=== PATIENT | male | born 1975 | race Hispanic/Latino ===

== ENCOUNTER 2019-09-21 14:33 | Emergency (ER) | payer SELFPAY ==
[2019-09-21 15:51] LABS: Absolute Lymphocytes (CBC) 2.7 K/uL (0.7-4.9); Basophils % 1.3 % (0-1.3); Lymphocytes % 21.2 % (15.3-44.8); MPV 9.8 fL (7.6-11.3)
[2019-09-21 16:06] LABS: Potassium 3.4 mmol/L (3.5-5.1)
[2019-09-21] MEDS ORDERED: SMZ./TMP. 800/160 MG TABLET ONE (16:10)
[2019-09-21] MEDS ORDERED: CLINDAMYCIN 900MG/D5W 900 MG/50 ML IVPB IV ONE (16:10)
--- NOTE | 2019-09-21 16:34 | ER ---
Nurse's Notes [facility] – [place], [place] Name: Fredy Bernard Age: 44 yrs Sex: Male : 1975 Arrival Date: 09/21/2019 Time: 14:34 Bed 14 Private MD: Diagnosis: Cellulitis of left lower limb Presentation: 09/20 14:37 Chief complaint: Patient states: I think I got bit by a spider on my L leg 2 days. Now, ca1 it's red and hot to touch and hurts a lot. Coronavirus screen: Proceed with normal triage. Patient denies a cough. Patient denies shortness of breath or difficulty breathing. Patient denies measured and/or subjective temperature greater than 100.4F prior to today's visit. Patient denies travel on a cruise ship or to a country the [facility] currently lists as an affected area. Patient denies contact with known and/or suspected case of COVID-19. Ebola Screen: Patient negative for fever greater than or equal to 101.5 degrees Fahrenheit, and additional compatible Ebola Virus Disease symptoms Patient denies exposure to infectious person. Patient denies travel to an Ebola-affected area in the 21 days before illness onset. No symptoms or risks identified at this time. Initial Sepsis Screen: Does the patient meet any 2 criteria? No. Patient's initial sepsis screen is negative. Does the patient have a suspected source of infection? No. Patient's initial sepsis screen is negative. Risk Assessment: Do you want to hurt yourself or someone else? Patient reports no desire to harm self or others. Onset of symptoms was September 21, 2019. 14:37 Method Of Arrival: Ambulatory ca1 14:37 Acuity: MARÍA ELENA 4 ca1 Triage Assessment: 14:45 Bite description: bite sustained to left lower leg by Pt. reports that he is uncertain rb1 if he was bitten by something., animal information: vaccination(s) is not applicable. Historical: - Allergies: 14:41 No Known Allergies; ca1 - Home Meds: 14:41 albuterol sulfate inhalation Inhl [Active]; ca1 - PMHx: 14:41 Asthma; ca1 - PSHx: 14:41 None; ca1 - Immunization history:: Adult Immunizations up to date, Flu vaccine is up to date. - Social history:: Smoking status: Patient reports the use of cigarette tobacco products, smokes one-half pack cigarettes per day. Screenin:45 Abuse screen: Denies threats or abuse. Nutritional screening: No deficits noted. rb1 Tuberculosis screening: No symptoms or risk factors identified. Fall Risk None identified. Assessment: 14:45 General: Appears uncomfortable, Behavior is calm, cooperative, Denies fever, No fever rb1 today per pt. report. He did have a fever, chills, and bodyaches two days ago, but those symptoms went away. Denies SOB and cough. Pain: Complains of pain in left lower leg Pain currently is 10 out of 10 on a pain scale. Pain began 2-3 days ago. Neuro: Level of Consciousness is awake, alert, obeys commands, Oriented to person, place, time, situation. Cardiovascular: Capillary refill < 3 seconds. Respiratory: Airway is patent Respiratory effort is even, unlabored, Respiratory pattern is regular, symmetrical, Denies cough, shortness of breath. GI: No signs and/or symptoms were reported involving the gastrointestinal system. : No signs and/or symptoms were reported regarding the genitourinary system. Derm: Skin is intact, Skin is red. Musculoskeletal: Swelling present in left lower leg. 15:45 Reassessment: Patient appears in no apparent distress at this time. No changes from rb1 previously documented assessment. 16:13 Reassessment: US at the bedside. rb1 16:40 Reassessment: Patient appears in no apparent distress at this time. Patient and/or rb1 family updated on plan of care and expected duration. Pain level reassessed. Patient is alert, oriented x 3, equal unlabored respirations, skin warm/dry/pink. Vital Signs: 14:37 BP 124 / 89; Pulse 95; Resp 17 S; Temp 97.4(TE); Pulse Ox 97% on R/A; Weight 145.15 kg ca1 (R); Height 5 ft. 6 in. (167.64 cm) (R); Pain 10/10; 15:42 BP 123 / 88; Pulse 96; Resp 20; Pulse Ox 99% on R/A; rb1 16:40 BP 125 / 91; Pulse 91; Resp 18; Pulse Ox 100% on R/A; rb1 14:37 Body Mass Index 51.65 (145.15 kg, 167.64 cm) ca1 ED Course: 14:34 Patient arrived in ED. ag5 14:36 Anatoliy Yoon PA is PHCP. cp 14:36 Pradip Che MD is Attending Physician. cp 14:40 Triage completed. ca1 14:41 Arm band placed on right wrist. ca1 14:42 Zenaida Strickland, RN is Primary Nurse. rb1 14:45 Patient has correct armband on for positive identification. Bed in low position. Call rb1 light in reach. Side rails up X 1. Pulse ox on. NIBP on. 15:39 Initial lab(s) drawn, by me, sent to lab. First set of blood cultures drawn By me in lt1 RAC. 15:41 Inserted saline lock: 20 gauge in right antecubital area, using aseptic technique. lt1 15:48 Second set of blood cultures drawn By me in LAC. lt1 15:50 Bed in low position. Call light in reach. Door closed. Lights dimmed. Warm blanket lt1 given. 15:50 Blood Culture Adult (2) Sent. lt1 15:50 BMP Sent. lt1 15:50 CBC with Diff Sent. lt1 16:22 PHCP role handed off by Anatoliy Yoon PA kb 16:22 Sheri Gonzalez FNP-C is PHCP. kb 16:33 Anatoliy Yoon PA is PHCP. cp 16:36 Ultrasound completed. Patient tolerated well. sg3 16:36 US Extremity Venous Unilateral Ltd In Process Unspecified. EDMS 17:11 No provider procedures requiring assistance completed. IV discontinued, intact, rb1 bleeding controlled, No redness/swelling at site. Pressure dressing applied. Administered Medications: 16:10 Drug: Clindamycin 900 mg Route: IVPB; Infused Over: 30 mins; Site: right antecubital; rb1 16:30 Follow up: Response: No adverse reaction; IV Status: Completed infusion rb1 16:10 Drug: Bactrim (160 mg-800 mg (DS) 1 tablet Route: PO; rb1 16:40 Follow up: Response: No adverse reaction rb1 16:58 Drug: Potassium Effervescent Tablet 25 mEq Route: PO; rb1 17:00 Follow up: Response: Medication administered at discharge. rb1 Outcome: 16:34 Discharge ordered by . cp 17:11 Patient left the ED. rb1 17:11 Discharged to home ambulatory, pt. did not want a wheelchair rb1 17:11 Condition: stable 17:11 Discharge instructions given to patient, Instructed on discharge instructions, follow up and referral plans. medication usage, Demonstrated understanding of instructions, follow-up care, medications, Prescriptions given X 3. Signatures: Dispatcher [employer] Sheri Fraire, ILEANA-Gabriele [employer]UP[employer] DEVELOPER-Anatoliy Velez PA PA cp Barber, Rebecca, RN RN rb1 Sho Barger sg3 Roselyn Osei RN RN ca1 Luis Fernando Sharma ag5 Tayler, Halie 1
--- NOTE | 2019-09-21 16:34 | EDPHYS ---
Physician Documentation [facility] Name: Fredy Bernard Age: 44 yrs Sex: Male : 1975 Arrival Date: 09/21/2019 Time: 14:34 Bed 14 Private MD: ED Physician Pradip Che HPI: 09/20 15:30 This 44 yrs old Male presents to ER via Ambulatory with complaints of Insect Bite, Leg cp Pain. 15:30 The patient presents with pain, that is acute, swelling, tenderness, erythema. The cp complaints affect the left lower leg. 15:30 Context: resulted from possible spider bite, the patient can fully bear weight, the cp patient is able to ambulate. Onset: The symptoms/episode began/occurred 2 day(s) ago. Associated signs and symptoms: Pertinent positives: fever, swelling, warmth, Pertinent negatives numbness, shortness of breath, chest pain. Treatment prior to arrival includes: took 1000 mg of penicillin earlier today. 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 Historical: - Allergies: 14:41 No Known Allergies; ca1 - Home Meds: 14:41 albuterol sulfate inhalation Inhl [Active]; ca1 - PMHx: 14:41 Asthma; ca1 - PSHx: 14:41 None; ca1 - Immunization history:: Adult Immunizations up to date, Flu vaccine is up to date. - Social history:: Smoking status: Patient reports the use of cigarette tobacco products, smokes one-half pack cigarettes per day. ROS: 15:35 Constitutional: Negative for body aches, chills, fever, poor PO intake. cp 15:35 Eyes: Negative for injury, pain, redness, and discharge. cp 15:35 ENT: Negative for drainage from ear(s), ear pain, sore throat, difficulty swallowing, difficulty handling secretions. 15:35 Cardiovascular: Negative for chest pain, palpitations. 15:35 Respiratory: Negative for cough, shortness of breath, wheezing. 15:35 Abdomen/GI: Negative for abdominal pain, nausea, vomiting, and diarrhea. 15:35 MS/extremity: Positive for erythema, pain, swelling, tenderness, of the left lower leg, Negative for injury or acute deformity, decreased range of motion, paresthesias. 15:35 Neuro: Negative for altered mental status, headache, weakness. 15:35 All other systems are negative. Exam: 15:40 Constitutional: The patient appears in no acute distress, alert, awake, non-toxic, well cp developed, well nourished, obese. 15:40 Head/Face: Normocephalic, atraumatic. cp 15:40 Eyes: Periorbital structures: appear normal, Conjunctiva: normal, Lids and lashes: cp appear normal, bilaterally. 15:40 ENT: External ear(s): are unremarkable, Nose: is normal, Mouth: is normal, Posterior pharynx: is normal, airway is patent. 15:40 Chest/axilla: Inspection: normal. 15:40 Cardiovascular: Rate: normal, Rhythm: regular, JVD: is not appreciated. 15:40 Respiratory: the patient does not display signs of respiratory distress, Respirations: normal, no use of accessory muscles, labored breathing, is not present, Breath sounds: are clear throughout, no decreased breath sounds, no stridor, no wheezing. 15:40 Abdomen/GI: Exam negative for discomfort, distension, guarding, Inspection: abdomen appears normal. 15:40 Back: pain, is absent, ROM is normal. 15:40 Musculoskeletal/extremity: Extremities: grossly normal except: noted in the left lower leg: erythema, swelling, tenderness, There is no evidence of Perfusion: the extremity is normally perfused throughout, Sensation intact. 15:40 Skin: abscess, not appreciated, cellulitis, that is moderate, irregular, on the left lower leg, skin intact. 15:40 Neuro: Orientation: to person, place \T\ time. Mentation: is normal, Motor: moves all fours, strength is normal. Vital Signs: 14:37 BP 124 / 89; Pulse 95; Resp 17 S; Temp 97.4(TE); Pulse Ox 97% on R/A; Weight 145.15 kg ca1 (R); Height 5 ft. 6 in. (167.64 cm) (R); Pain 10/10; 15:42 BP 123 / 88; Pulse 96; Resp 20; Pulse Ox 99% on R/A; rb1 16:40 BP 125 / 91; Pulse 91; Resp 18; Pulse Ox 100% on R/A; rb1 14:37 Body Mass Index 51.65 (145.15 kg, 167.64 cm) ca1 MDM: 15:15 Patient medically screened. cp 16:33 Data reviewed: vital signs, nurses notes, lab test result(s), radiologic studies, cp ultrasound, and as a result, I will discharge patient. 16:33 ED course: VSS. US tech reports lower extremity US negative for DVT left leg. IV and cp oral antibiotics given and will discharge to home for continued monitoring. 09/20 15:20 Order name: CBC with Diff; Complete Time: 15:54 09/20 15:55 Interpretation: Normal except: WBC 12.8; NEUT A 9.0. 09/20 15:20 Order name: BMP; Complete Time: 16:08 09/20 16:09 Interpretation: Normal except: K 3.4; GFR 68. 09/20 15:20 Order name: Blood Culture Adult (2) 09/20 15:20 Order name: US Extremity Venous Unilateral Ltd 09/20 15:20 Order name: IV; Complete Time: 15:50 09/20 15:21 Order name: Misc. Order: outline area of erythema; Complete Time: 16:13 cp Administered Medications: 16:10 Drug: Clindamycin 900 mg Route: IVPB; Infused Over: 30 mins; Site: right antecubital; rb1 16:30 Follow up: Response: No adverse reaction; IV Status: Completed infusion rb1 16:10 Drug: Bactrim (160 mg-800 mg (DS) 1 tablet Route: PO; rb1 16:40 Follow up: Response: No adverse reaction rb1 16:58 Drug: Potassium Effervescent Tablet 25 mEq Route: PO; rb1 17:00 Follow up: Response: Medication administered at discharge. rb1 Disposition: 17:29 Co-signature as Attending Physician, Pradip Che MD. rn Disposition: 09/21/19 16:34 Discharged to Home. Impression: Cellulitis of left lower limb. - Condition is Stable. - Discharge Instructions: Cellulitis, Adult. - Prescriptions for Clindamycin HCl 300 mg Oral Capsule - take 1 capsule by ORAL route every 6 hours for 10 days; 40 capsule. Ibuprofen 800 mg Oral Tablet - take 1 tablet by ORAL route every 8 hours As needed take with food; 30 tablet. Bactrim DS 800- 160 mg Oral Tablet - take 1 tablet by ORAL route every 12 hours for 10 days; 20 tablet. - Medication Reconciliation Form, Thank You Letter, Antibiotic Education, Prescription Opioid Use form. - Follow up: Private Physician; When: 1 - 2 days; Reason: Worsening of condition. - Problem is new. - Symptoms have improved. Signatures: Dispatcher [employer] EDMS Pradip Che MD MD rn Anatoliy Yoon PA PA cp Zenaida Strickland, RN RN rb1 Roselyn Osei RN RN ca1 Corrections: (The following items were deleted from the chart) 15:55 15:54 Normal except: WBC 12.8. cp cp 17:11 16:34 09/21/2019 16:34 Discharged to Home. Impression: Cellulitis of left lower limb. rb1 Condition is Stable. Discharge Instructions: Cellulitis, Adult. Prescriptions for Clindamycin HCl 300 mg Oral Capsule - take 1 capsule by ORAL route every 6 hours for 10 days; 40 capsule, Ibuprofen 800 mg Oral Tablet - take 1 tablet by ORAL route every 8 hours As needed take with food; 30 tablet, Bactrim DS 800-160 mg Oral Tablet - take 1 tablet by ORAL route every 12 hours for 10 days; 20 tablet. and Forms are Medication Reconciliation Form, Thank You Letter, Antibiotic Education, Prescription Opioid Use. Follow up: Private Physician; When: 1 - 2 days; Reason: Worsening of condition. Problem is new. Symptoms have improved. cp
--- NOTE | 2019-09-21 16:45 | RAD REPORT ---
EXAM DESCRIPTION: US - Extremity Venous Uni Ltd - 09/21/2019 4:36 pm CLINICAL HISTORY: Pain;Swelling Leg swelling and edema. COMPARISON: No comparisons FINDINGS: Left lower extremity venous system was interrogated with Doppler technique. Normal flow, c ompressibility and augmentation was noted. There is no DVT present. IMPRESSION: No evidence of left lower extremity deep venous thrombosis.
[2019-09-21] MEDS ORDERED: POTASSIUM 25 MEQ EFFERV TAB ONE (17:03)
[2019-09-21 17:22] VITALS: BP 124/89; TEMP 97.4; O2SAT 97
== END 2019-09-21 17:11 | disposition home or self-care (01) ==
LOC: ER 14:33
DX: L03.116 Cellulitis of left lower limb (principal); J45.909 Unspecified asthma, uncomplicated; F17.210 Nicotine dependence, cigarettes, uncomplicated
CPT/HCPCS: 36415; 80048; 85025; 87040; 93971; 96365; 99284

== ENCOUNTER 2021-05-24 21:26 | Emergency (ER) | payer SELFPAY ==
[2021-05-24 22:36] LABS: SARS-COV-2 RT PCR NEGATIVE (NEGATIVE)
[2021-05-25] MEDS ORDERED: dexAMETHasone 4 MG/ML VIAL ONE (00:47)
[2021-05-25] MEDS ORDERED: LEVALBUTEROL 1.25 MG/3 ML NEB ONE (00:47)
[2021-05-25] MEDS ORDERED: LIDOCAINE 2% MPF 5 ML VIAL ONE (01:22)
[2021-05-25] MEDS ORDERED: CEFTRIAXONE 1000 MG/VIAL ONE ×2 (01:22→01:28)
[2021-05-25] MEDS ORDERED: LIDOCAINE 1% MPF 2 ML AMPULE ONE ×2 (01:23→01:28)
--- NOTE | 2021-05-25 02:18 | EDPHYS ---
Physician Documentation [facility] Name: Fredy Bernard Age: 45 yrs Sex: Male : 1975 Arrival Date: 05/24/2021 Time: 21:29 Bed 21 Private MD: ED Physician Mathieu Hickey HPI: 05/25 01:01 This 45 yrs old Male presents to ER via Ambulatory with complaints of jmm Breathing Difficulty. 01:01 The patient has shortness of breath at rest. Onset: The symptoms/episode began/occurred jmm gradually, 3 day(s) ago. Duration: The symptoms are continuous, and are steadily getting worse. The patient's shortness of breath is aggravated by coughing, is alleviated by nothing. Associated signs and symptoms: Pertinent positives: productive cough. It is unknown whether or not the patient has had similar symptoms in the past. Historical: - Allergies: 05/24 21:52 No Known Allergies; tw5 - Home Meds: 21:52 albuterol sulfate inhalation Inhl [Active]; tw5 - PMHx: 21:52 Asthma; Pneumonia; tw5 - PSHx: 21:52 None; tw5 - Immunization history:: Flu vaccine is not up to date. - Social history:: Smoking status: Patient reports the use of cigarette tobacco products, smokes one-half pack cigarettes per day. ROS: 05/25 01:01 Constitutional: Positive for body aches, chills. jmm Respiratory: Positive for cough, shortness of breath. All other systems are negative. Exam: 01:01 Constitutional: This is a well developed, well nourished patient who is awake, alert, jmm and in no acute distress. Head/Face: atraumatic. Eyes: EOMI, no conjunctival erythema appreciated ENT: Moist Mucus Membranes 01:01 Neck: Trachea midline, Supple Chest/axilla: Normal chest wall appearance and motion. Cardiovascular: Regular rate and rhythm. No edema appreciated 01:01 Abdomen/GI: Non distended, soft Back: Normal ROM Skin: General appearance color normal MS/ Extremity: Moves all extremities, no obvious deformities appreciated, no edema noted to the lower extremities Neuro: Awake and alert, normal gait Psych: Behavior is normal, Mood is normal, Patient is cooperative and pleasant 01:01 ENT: TM's: erythema, that is moderate, on the right, on the left, Posterior pharynx: is normal. 01:01 Respiratory: mild respiratory distress is noted, Respirations: normal, Breath sounds: wheezing: that is moderate, is heard diffusely. Vital Signs: 05/24 21:47 BP 111 / 78; Pulse 82; Resp 18; Temp 97.6(TE); Pulse Ox 98% on R/A; Weight 131.54 kg; tw5 Height 5 ft. 6 in. (167.64 cm); Pain 7/10; 05/25 00:01 BP 114 / 73; Pulse 84; Resp 22; Pulse Ox 96% on R/A; mk 01:00 BP 115 / 81; Pulse 81; Resp 20; Temp 98.1; Pulse Ox 97% on R/A; mk 02:30 BP 112 / 54; Pulse 89; Resp 18; Pulse Ox 97% on R/A; mk 02:30 Temp 98.5(O); mk 05/24 21:47 Body Mass Index 46.81 (131.54 kg, 167.64 cm) tw5 [place] Coma Score: 00:01 Eye Response: spontaneous(4). Verbal Response: oriented(5). Motor Response: obeys mk commands(6). Total: 15. 01:00 Eye Response: spontaneous(4). Verbal Response: oriented(5). Motor Response: obeys mk commands(6). Total: 15. 02:30 Eye Response: spontaneous(4). Verbal Response: oriented(5). Motor Response: obeys mk commands(6). Total: 15. MDM: 00:15 Patient medically screened. [facility] 02:15 Data reviewed: vital signs, nurses notes. Counseling: I had a detailed discussion with danyell the patient and/or guardian regarding: the historical points, exam findings, and any diagnostic results supporting the discharge/admit diagnosis, lab results, the need for outpatient follow up, to return to the emergency department if symptoms worsen or persist or if there are any questions or concerns that arise at home. ED course: Patient is alert and non toxic in appearance in the ED. No signs of resp distress. Advised to follow up with pcp and otherwise given strict return precautions. patient understood and agrees with the plan of care. . 05/24 21:51 Order name: COVID-19/FLU A+B (Document "Date of Onset" if Symptomatic); Complete Time: 22:48 05/24 21:51 Order name: Strep; Complete Time: 22:48 05/24 22:27 Order name: Throat Culture EDMS Administered Medications: 01:09 Drug: Decadron (dexamethasone) 10 mg Route: IM; Site: Other; 01:09 Drug: Xopenex (levalbuterol) (3) 1.25 mg Route: Inhalation; 01:41 Drug: Rocephin (cefTRIAXone) 1 grams Route: IM; Site: left gluteus; Disposition: 05:21 Co-signature as Attending Physician, Mathieu Hickey MD. [email or web address] Disposition Summary: 05/25/21 02:17 Discharge Ordered Location: Home [facility] Condition: Stable [facility] Diagnosis - Acute serous otitis media, unspecified ear jmm - Acute upper respiratory infection, unspecified jmm Followup: [facility] - With: Private Physician - When: 2 - 3 days - Reason: Recheck today's complaints, Continuance of care, Re-evaluation by your physician Discharge Instructions: - Discharge Summary Sheet [facility] - Upper Respiratory Infection, Adult [facility] Forms: - Medication Reconciliation Form [facility] - Thank You Letter [facility] - Antibiotic Education [facility] - Prescription Opioid Use [facility] Prescriptions: - cefdinir 300 mg Oral capsule - take 1 capsule by ORAL route every 12 hours for 10 days; 20 capsule; Refills: [facility] 0, Product Selection Permitted - albuterol sulfate 90 mcg/actuation Inhalation HFA aerosol inhaler - inhale 2 puff by INHALATION route every 6 hours; 1 Pump; Refills: 0, Product [facility] Selection Permitted - Prednisone 20 mg Oral Tablet - take 3 tablets by ORAL route once daily for 5 days; 15 tablet; Refills: 0, [facility] Product Selection Permitted Signatures: Dispatcher [employer] EDMS Jayant Oro PA PA jmm Holmes, Maurice, MD MD [facility] Kati Thomas [facility] Qiana Chapa, RN RN
--- NOTE | 2021-05-25 02:18 | ER ---
Nurse's Notes [facility] Name: Fredy Bernard Age: 45 yrs Sex: Male : 1975 Arrival Date: 05/24/2021 Time: 21:29 Bed 21 Private MD: Diagnosis: Acute serous otitis media, unspecified ear;Acute upper respiratory infection, unspecified Presentation: 05/24 21:47 Chief complaint: Patient states: "My eyes have been pretty bad, coughing, sore throat, tw5 headache. Having a hard time sleeping. Everytime I swallow my left ear hurts.". Coronavirus screen: Vaccine status: Patient reports receiving the 2nd dose of the covid vaccine. DeepDyve. Ebola Screen: Patient negative for fever greater than or equal to 101.5 degrees Fahrenheit, and additional compatible Ebola Virus Disease symptoms Patient denies exposure to infectious person. Patient denies travel to an Ebola-affected area in the 21 days before illness onset. Initial Sepsis Screen: Does the patient meet any 2 criteria? No. Patient's initial sepsis screen is negative. Does the patient have a suspected source of infection? No. Patient's initial sepsis screen is negative. Risk Assessment: Do you want to hurt yourself or someone else? Patient reports no desire to harm self or others. Onset of symptoms was May 19, 2021. 21:47 Method Of Arrival: Ambulatory tw5 21:47 Acuity: MARÍA ELENA 4 tw5 Triage Assessment: 21:51 General: Appears in no apparent distress. Behavior is calm, cooperative, appropriate tw5 for age. Pain: Complains of pain in chest and throat Pain currently is 7 out of 10 on a pain scale. Respiratory: Reports shortness of breath at rest Onset: The symptoms/episode began/occurred at an unknown time. the patient has mild shortness of breath. Historical: - Allergies: 21:52 No Known Allergies; tw5 - Home Meds: 21:52 albuterol sulfate inhalation Inhl [Active]; tw5 - PMHx: 21:52 Asthma; Pneumonia; tw5 - PSHx: 21:52 None; tw5 - Immunization history:: Flu vaccine is not up to date. - Social history:: Smoking status: Patient reports the use of cigarette tobacco products, smokes one-half pack cigarettes per day. Screenin:51 Abuse screen: Denies threats or abuse. Denies injuries from another. Nutritional tw5 screening: No deficits noted. Tuberculosis screening: No symptoms or risk factors identified. Fall Risk No fall in past 12 months (0 pts). Assessment: 21:53 Respiratory: Airway is patent Respiratory effort is even, unlabored. tw5 05/25 00:00 General: Appears in no apparent distress. Behavior is calm, cooperative. Pain: Denies mk pain. Neuro: Level of Consciousness is awake, alert, obeys commands, Oriented to person, place, time, situation, Found[employer] Worker General are equal bilaterally Moves all extremities. Gait is steady, Speech is normal, Facial symmetry appears normal, Cardiovascular: Heart tones S1 S2 Capillary refill < 3 seconds fingers toes JVD is present Patient's skin is warm and dry. Rhythm is regular. Respiratory: Airway is patent Trachea midline Respiratory effort is even, labored, occasionally labored with activity or long periods of talking Respiratory pattern is Breath sounds with wheezes bilaterally. GI: Abdomen is flat, non-distended, Bowel sounds present X 4 quads. : No signs and/or symptoms were reported regarding the genitourinary system. Derm: Skin is intact, is healthy with good turgor. Musculoskeletal: Capillary refill < 3 seconds, Range of motion:. 01:00 Reassessment: No changes from previously documented assessment. Patient and/or family mk updated on plan of care and expected duration. Pain level reassessed. Patient is alert, oriented x 3, equal unlabored respirations, skin warm/dry/pink. 02:29 Reassessment: Patient and/or family updated on plan of care and expected duration. Pain mk level reassessed. Patient is alert, oriented x 3, equal unlabored respirations, skin warm/dry/pink. Patient states feeling better. Patient states symptoms have improved. Vital Signs: 05/24 21:47 BP 111 / 78; Pulse 82; Resp 18; Temp 97.6(TE); Pulse Ox 98% on R/A; Weight 131.54 kg; tw5 Height 5 ft. 6 in. (167.64 cm); Pain 11/27; 05/25 00:01 BP 114 / 73; Pulse 84; Resp 22; Pulse Ox 96% on R/A; mk 01:00 BP 115 / 81; Pulse 81; Resp 20; Temp 98.1; Pulse Ox 97% on R/A; mk 02:30 BP 112 / 54; Pulse 89; Resp 18; Pulse Ox 97% on R/A; mk 02:30 Temp 98.5(O); mk 05/24 21:47 Body Mass Index 46.81 (131.54 kg, 167.64 cm) tw5 [place] Coma Score: 00:01 Eye Response: spontaneous(4). Verbal Response: oriented(5). Motor Response: obeys mk commands(6). Total: 15. 01:00 Eye Response: spontaneous(4). Verbal Response: oriented(5). Motor Response: obeys mk commands(6). Total: 15. 02:30 Eye Response: spontaneous(4). Verbal Response: oriented(5). Motor Response: obeys mk commands(6). Total: 15. ED Course: 05/24 21:29 Patient arrived in ED. ja2 21:50 Triage completed. tw5 21:53 Arm band placed on right wrist. tw5 22:48 Jayant Oro PA is PHCP. [facility] 22:48 Mathieu Hickey MD is Attending Physician. [facility] 23:52 Qiana Chapa RN is Primary Nurse. 05/25 00:00 Patient has correct armband on for positive identification. Allergy band placed. Call mk light in reach. Side rails up X 1. Pulse ox on. NIBP on. 02:29 No provider procedures requiring assistance completed. Patient did not have IV access mk during this emergency room visit. Administered Medications: 01:09 Drug: Decadron (dexamethasone) 10 mg Route: IM; Site: Other; mk 01:09 Drug: Xopenex (levalbuterol) (3) 1.25 mg Route: Inhalation; mk 01:41 Drug: Rocephin (cefTRIAXone) 1 grams Route: IM; Site: left gluteus; mk Outcome: 02:17 Discharge ordered by . [facility] 02:29 Discharged to home 02:29 Condition: stable 02:29 Discharge instructions given to patient, significant other. 02:51 Patient left the ED. Signatures: Jayant Oro PA PA rad Brooks Ranivikash loving Kati Thomas tw5 Qiana Chapa, RN RN naa Corrections: (The following items were deleted from the chart) 02:30 02: Patient has correct armband on for positive identification. Allergy band placed. Call light in reach. Side rails up X 1. : Pulse ox on. NIBP on. [facility] 01:00 GCS: 15, [facility] 01:00 BP 112 / 54; Pulse 89bpm; Resp 18bpm; Pulse Ox 97% RA; [facility]
[2021-05-25 03:32] VITALS: O2SAT 97
[2021-05-25 03:34] VITALS: BP 112/54; TEMP 98.5
== END 2021-05-25 02:51 | disposition home or self-care (01) ==
LOC: ER 21:26
DX: J06.9 Acute upper respiratory infection, unspecified (principal); H65.02 Acute serous otitis media, left ear; Z20.822 Contact with and (suspected) exposure to COVID-19
CPT/HCPCS: 0240U; 87070; 87081; 96372; 99284; J1100